=== PATIENT | male | born 1990 | race Caucasian/White ===

== ENCOUNTER 2017-10-10 19:39 | Observation (INO) ==
[2017-10-10] MEDS ORDERED: 0.9 % SODIUM CHLORIDE 1,000 ML IV ONE ×2 (19:46→21:57)
[2017-10-10] MEDS ORDERED: ONDANSETRON 4 MG/2 ML VIAL IV ONE (19:46)
[2017-10-10] MEDS ORDERED: PROMETHAZINE 25 MG/ML VIAL IV ONE (20:44)
[2017-10-10] MEDS ORDERED: HYDROmorphone 2 MG/ML VIAL IV PRN (20:44)
[2017-10-10 20:58] LABS: Basophils # (Auto) 0.1 K/mcL (0.0-0.3); Basophils % (Auto) 0.4 % (0.0-2.0); Eosinophils # (Auto) 0.2 K/mcL (0.0-0.7); Eosinophils % (Auto) 1.4 % (0.0-7.0); Granulocytes % (Auto) 72.8 % (38.0-78.0); Lymphocytes # (Auto) 3.4 K/mcL (1.5-4.8); Lymphocytes % (Auto) 20.2 % (15.5-49.0); Mean Cell Volume 92.9 fL (80.0-100.0); Mean Corpuscular HGB Conc 33.6 g/dL (31.0-36.0); Mean Corpuscular Hemoglobin 31.2 pg (26.0-34.0); Monocytes # (Auto) 0.9 K/mcL (0.1-0.9); Monocytes % (Auto) 5.2 % (1.0-12.0); Platelet Count 221 K/mcL (140-440); RBC 4.84 M/mcL (4.50-5.90); Red Cell Distribution Width 12.5 % (11.5-14.5)
[2017-10-10 21:17] LABS: ALT/SGPT 35 U/l (0-40); Albumin 4.6 gm/dL (3.2-5.2); Albumin/Globulin Ratio 1.7 (1.0-2.3); Alkaline Phosphatase 142 U/L (39-117); Blood Urea Nitrogen 29 mg/dl (6-20)
[2017-10-10 21:27] LABS: Beta Hydroxybutyrate 4.84 mmol/L (< 0.27)
[2017-10-10] MEDS ORDERED: METOCLOPRAMIDE 10 MG/2 ML VIAL IV ONE (21:51)
[2017-10-10] MEDS ORDERED: INSULIN REGULAR, HUMAN 50 UNIT in 0.9 % SODIUM CHLORIDE 99.5 ML IV SCH (22:00)
[2017-10-10] MEDS ORDERED: INSULIN REGULAR, HUMAN 1 UNIT/0.01 ML UNIT IV ONE (22:04)
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
[2017-10-10] MEDS ORDERED: ACETAMINOPHEN 325 MG TABLET PO PRN (22:45)
[2017-10-10] MEDS ORDERED: INSULIN REGULAR, HUMAN 50 UNIT in 0.9 % SODIUM CHLORIDE 100 ML IV SCH (22:45)
[2017-10-10] MEDS ORDERED: ONDANSETRON 4 MG/2 ML VIAL IV PRN (22:45)
[2017-10-10] MEDS ORDERED: PROCHLORPERAZINE 10 MG/2 ML VIAL IV PRN (22:51)
[2017-10-10] MEDS ORDERED: ONDANSETRON 4 MG/2 ML VIAL ONE (22:54)
[2017-10-10 23:00] LABS: Appearance,Urine CLEAR; Bacteria,Urine 0 /hpf (0); Bilirubin,Urine NEG (NEG); Color,Urine STRAW; Glucose,Urine (UA) >=500 mg/dL (NEG); Leukocyte Esterase,Urine NEG /uL (NEG); Mucus,Urine FEW /hpf (0); Protein,Urine NEG (NEG); Specific Gravity,Urine 1.022 (1.000-1.035); Urine Blood NEG mg/dL (<0.03); Urine RBC < 1 /hpf (0-1); Urine Squamous Epithelial Cell < 1 /hpf (0-4); Urine WBC < 1 /hpf (0-4); Urobilinogen,Urine NEG (NEG)
[2017-10-10] MEDS ORDERED: INSULIN REGULAR, HUMAN 1 UNIT/0.01 ML UNIT ONE (23:08)
[2017-10-10] MEDS: 0.9 % SODIUM CHLORIDE 1,000 ML IV SCH (23:30)
[2017-10-11] MEDS: DEXTROSE 5%-1/2NS 1,000 ML IV SCH ×3 (00:25→15:03)
[2017-10-11 01:33] LABS: Hemoglobin A1C 8.2 % HGB (4.0-6.0)
[2017-10-11] MEDS: 0.9 % SODIUM CHLORIDE 10 ML SYRINGE IV SCH ×3 (05:02→22:25)
[2017-10-11 06:23] LABS: Basophils # (Auto) 0 K/mcL (0.0-0.3); Basophils % (Auto) 0 % (0.0-2.0); Eosinophils # (Auto) 0 K/mcL (0.0-0.7); Eosinophils % (Auto) 0 % (0.0-7.0); Granulocytes % (Auto) 88.7 % (38.0-78.0); Lymphocytes % (Auto) 6.3 % (15.5-49.0); Mean Cell Volume 92.9 fL (80.0-100.0); Mean Corpuscular HGB Conc 33.9 g/dL (31.0-36.0); Mean Corpuscular Hemoglobin 31.5 pg (26.0-34.0); Monocytes # (Auto) 0.8 K/mcL (0.1-0.9); Platelet Count 194 K/mcL (140-440); RBC 4.11 M/mcL (4.50-5.90); Red Cell Distribution Width 12.4 % (11.5-14.5)
[2017-10-11] MEDS: 0.9 % SODIUM CHLORIDE 1,000 ML IV SCH ×2 (06:38→17:52)
[2017-10-11 06:44] LABS: ALT/SGPT 28 U/l (0-40); Albumin 3.9 gm/dL (3.2-5.2); Albumin/Globulin Ratio 1.9 (1.0-2.3); Alkaline Phosphatase 92 U/L (39-117); Bilirubin,Direct < 0.2 mg/dL (0.0-0.3); Blood Urea Nitrogen 24 mg/dl (6-20); Gamma Glutamyl Transpeptidase 23 U/L (8-61); Uric Acid 4.7 mg/dL (2.5-8.0)
--- NOTE | 2017-10-11 07:14 | Emergency Department Note ---
General Adult HPI - General Chief complaint: Cold/Flu Symptoms Stated complaint: Emesis, Body Aches Time Seen by Provider: 10/10/17 19:45 - History of Present Illness HPI Narrative: This patient has been type 1 diabetes for 10-12 years and worries that he may be in DKA. He says some diffuse abdominal achiness nausea and dehydration for the last day. No other significant symptoms. - Related Data Home Medications Medication Instructions Recorded Confirmed Insulin Aspart Prot/Insuln Asp 100 unit SQ TIDAC 10/10/17 10/10/17 [Novolog Mix 70-30 Vial] Allergies Allergy/AdvReac Type Severity Reaction Status Date / Time No Known Drug Allergies Allergy Verified 08/31/16 18:52 Review of Systems All systems ED: reviewed and negative except as stated. Past Medical History - Past Medical History Medical history: Reports: DM (Type I) Surgical history ED: Reports: no surgical history - Social History smoking status: Never smoker Alcohol use: Reports: Unknown Drug use: Reports: unknown Physical Exam Limitations: no limitations General appearance: alert Head: atraumatic Eye: Present: normal appearance ENT: mucous membranes dry Neck: Present: normal inspection Chest: Present: normal inspection Respiratory: Present: normal lung sounds bilaterally Cardiovascular: Present: regular rate, normal rhythm, normal heart sounds Abdominal: Present: soft. Absent: distention, tenderness Neurological: Present: alert Psychiatric: Present: normal affect Skin: Present: warm, dry, intact Course Vital Signs Temperature 97.0 F 10/10/17 19:40 Pulse Rate 105 H 10/10/17 19:40 Respiratory Rate 26 H 10/10/17 19:40 Blood Pressure 147/82 10/10/17 19:40 Pulse Oximetry (%) 100 10/10/17 19:40 Temperature 99.9 F H 10/11/17 07:03 Pulse Rate 89 10/11/17 07:03 Respiratory Rate 18 10/11/17 07:03 Blood Pressure 101/61 10/11/17 07:03 Pulse Oximetry (%) 98 10/11/17 07:03 Medical Decision Making - [facility] Narrative Medical decision making narrative: This patient was hydrated and given IV insulin 10 mg an IV drip was started after DKA was diagnosed. Patient will be admitted to the hospital by the hospitalist service. - Lab Data Lab results reviewed: Yes I reviewed the patient's lab results. Result diagrams: 10/11/17 04:00 10/11/17 04:00 Lab Results 10/10/17 10/10/17 10/10/17 Range/Units 19:56 19:56 19:56 WBC 16.9 H (4.5-11.0) K/mcL RBC 4.84 (4.50-5.90) M/mcL Hgb 15.1 (13.5-16.5) g/dL Hct 45.0 (41.0-55.0) % MCV 92.9 (80.0-100.0) fL MCH 31.2 (26.0-34.0) pg MCHC 33.6 (31.0-36.0) g/dL RDW 12.5 (11.5-14.5) % Plt Count 221 (140-440) K/mcL MPV 10.1 (7.4-10.4) fL Gran % 72.8 (38.0-78.0) % Lymph % (Auto) 20.2 (15.5-49.0) % [place] % (Auto) 5.2 (1.0-12.0) % Eos % (Auto) 1.4 (0.0-7.0) % Baso % (Auto) 0.4 (0.0-2.0) % Gran # 12.3 H (1.8-8.0) K/mcL Lymph # (Auto) 3.4 (1.5-4.8) K/mcL [place] # (Auto) 0.9 (0.1-0.9) K/mcL Eos # (Auto) 0.2 (0.0-0.7) K/mcL Baso # (Auto) 0.1 (0.0-0.3) K/mcL Sodium 134 (133-145) mmol/L Potassium 4.5 (3.3-5.1) mmol/L Chloride 91 L (96-108) mmol/L Carbon Dioxide 15 L (22-30) mmol/L Anion Gap 28.0 H (8-16) BUN 29 H (6-20) mg/dl Creatinine 0.9 (0.7-1.2) mg/dl GFR Calculation 116 Glucose 419 H (70-105) mg/dL Hemoglobin A1c 8.2 H (4.0-6.0) % HGB Estim Average Glucose 189 mg/dL Calcium 9.7 (8.6-10.4) mg/dl Total Bilirubin 0.8 (0.0-1.0) mg/dL AST 33 (0-37) U/l ALT 35 (0-40) U/l Alkaline Phosphatase 142 H (39-117) U/L Total Protein 7.3 (5.9-8.4) gm/dL Albumin 4.6 (3.2-5.2) gm/dL Globulin 2.7 (2.2-3.7) gm/dL Albumin/Globulin Ratio 1.7 (1.0-2.3) Beta-Hydroxybutyrate 4.84 H (< 0.27) mmol/L Urine Color Urine Appearance Urine pH (5.0-9.0) Ur Specific [place] (1.000-1.035) Urine Protein (NEG) mg/dL Urine Glucose (UA) (NEG) mg/dL Urine Ketones (NEG) mg/dL Urine Occult Blood (<0.03) mg/dL Urine Nitrate (NEG) Urine Bilirubin (NEG) mg/dL Urine Urobilinogen (NEG) mg/dL Ur Leukocyte Esterase (NEG) /uL Urine RBC (0-1) /hpf Urine WBC (0-4) /hpf Ur Squamous Epith Cells (0-4) /hpf Urine Bacteria (0) /hpf Urine Mucus (0) /hpf Ur Culture Indicated? 10/10/17 Range/Units 22:15 WBC (4.5-11.0) K/mcL RBC (4.50-5.90) M/mcL Hgb (13.5-16.5) g/dL Hct (41.0-55.0) % MCV (80.0-100.0) fL MCH (26.0-34.0) pg MCHC (31.0-36.0) g/dL RDW (11.5-14.5) % Plt Count (140-440) K/mcL MPV (7.4-10.4) fL Gran % (38.0-78.0) % Lymph % (Auto) (15.5-49.0) % [place] % (Auto) (1.0-12.0) % Eos % (Auto) (0.0-7.0) % Baso % (Auto) (0.0-2.0) % Gran # (1.8-8.0) K/mcL Lymph # (Auto) (1.5-4.8) K/mcL [place] # (Auto) (0.1-0.9) K/mcL Eos # (Auto) (0.0-0.7) K/mcL Baso # (Auto) (0.0-0.3) K/mcL Sodium (133-145) mmol/L Potassium (3.3-5.1) mmol/L Chloride (96-108) mmol/L Carbon Dioxide (22-30) mmol/L Anion Gap (8-16) BUN (6-20) mg/dl Creatinine (0.7-1.2) mg/dl GFR Calculation Glucose (70-105) mg/dL Hemoglobin A1c (4.0-6.0) % HGB Estim Average Glucose mg/dL Calcium (8.6-10.4) mg/dl Total Bilirubin (0.0-1.0) mg/dL AST (0-37) U/l ALT (0-40) U/l Alkaline Phosphatase (39-117) U/L Total Protein (5.9-8.4) gm/dL Albumin (3.2-5.2) gm/dL Globulin (2.2-3.7) gm/dL Albumin/Globulin Ratio (1.0-2.3) Beta-Hydroxybutyrate (< 0.27) mmol/L Urine Color Straw Urine Appearance Clear Urine pH 5.0 (5.0-9.0) Ur Specific [place] 1.022 (1.000-1.035) Urine Protein Neg (NEG) mg/dL Urine Glucose (UA) >=500 A (NEG) mg/dL Urine Ketones 80 A (NEG) mg/dL Urine Occult Blood Neg (<0.03) mg/dL Urine Nitrate Neg (NEG) Urine Bilirubin Neg (NEG) mg/dL Urine Urobilinogen Neg (NEG) mg/dL Ur Leukocyte Esterase Neg (NEG) /uL Urine RBC < 1 (0-1) /hpf Urine WBC < 1 (0-4) /hpf Ur Squamous Epith Cells < 1 (0-4) /hpf Urine Bacteria 0 (0) /hpf Urine Mucus Few (0) /hpf Ur Culture Indicated? No - Radiology Data Radiology results reviewed: Yes I reviewed the patient's radiology results. Disposition Pt seen by [facility]ATE/PA only: No Clinical Impression: DKA, type 1 Disposition: Xfer As Outpt/Obs ([facility]) Condition: Good
--- NOTE | 2017-10-11 08:20 | XRay Report ---
HISTORY: Shortness of breath, body aches and emesis FINDINGS: The lungs are clear and normally expanded. The heart size, pulmonary vasculature, mediastinum, lisandro and pleura are normal. IMPRESSION: Normal chest Interpreted and Authenticated by: Blanco Sena 10/11/17
--- NOTE | 2017-10-11 11:00 | Discharge Summary ---
Medical - DS: Prov Patient information: Note initiated : 10/11/17 at 10:57 am Patient: Deandre Toledo a 27 y/o M admitted on 10/10/17 for Emesis, Body Aches. Date of admission: 10/10/17 22:39 Discharge date: 10/11/17 Primary care physician: Jc Lu Admitting clinician: Jessi Benavides Consults: 10/10/17 22:34 Consult to Physician [CONS] Stat Comment: Consulting Provider: Jessi Benavides Reason For Exam: Physician to Consult Discharging clinician: Jessi Benavides Medical - DS: Meds - Discharge Medications Active and Home Medications: Home Medications Insulin Aspart Prot/Insuln Asp [Novolog Mix 70-30 Vial] 100 unit SQ TIDAC [History Confirmed 10/10/17 Last Taken Unknown] Medical - DS: Hosp Hospital course: Mr. Toledo is a 27 year old M with a history of type 1 diabetes mellitus, diagnosed in 2003 presents to the emergency department complaining of ongoing nausea and vomiting. Also some body aches, occasional dyspnea. Onset was at about 10 AM this morning, he had nausea and vomiting, his glucoses were running high. This continued through the day, in spite of using his insulin pump, his glucoses continue to increase. This evening due to increasing CABG as well as persistent symptoms, he presents to the emergency department. Patient been well up until today. Denies any fever, he's feeling a bit chilled in the ED. Occasionally having dyspnea. No cough or sputum production. No chest tightness/squeezing/pressure. He is having emesis, has been retching forcefully, is now having some hematemesis. Initially there was no hematemesis. Is no history of ulcer or GI bleeding, no blood in his stool. Onset: 10 AM. Duration: 11 hours of presentation. Location: Systemic. Severity: Severe. Associated symptoms: Hematemesis, chills, dyspnea. Patient denies headache, sinus congestion/facial fullness, sore throat, cough or sputum production, abdominal pain, dysuria. No fever. No history of coronary disease. He has had DKA in the past, most recently about 3 years ago. In the emergency department, he is evaluated, noted to have glucose of 439, acidotic with increased anion gap and positive ketones. He's been admitted for treatment of diabetic ketoacidosis. Overnight, the patient received insulin infusion, hydration. By the following morning his anion gap had closed, he is feeling markedly better. He did not have any significant electrolyte abnormalities. Nausea and vomiting have resolved. Patient had noted that his glucoses had started to increase while he is at work, did not have his meter, had started to increase insulin via his pump but started to feel poorly. Suspect DKA was secondary to not able to compensate for progressive hyperglycemia. Patient had mild hematemesis consistent with Aviva-Whiteside tear. He had no further emesis or hematemesis by discharge. With hydration hemoglobin changed from 15-13, as might be expected, no evidence of further GI blood loss. Patient 's white count was 16,000 presentation, no evidence of infection was noted. The following morning it remained at 16,000. Infection as a cause of DKA is not suspected, this may represent a prolonged stress response. Patient's insulin infusion was titrated off, pump was resumed. He was monitored with stable glucose and was discharged to home. Discharge diagnosis: Type 1 diabetes mellitus with diabetic ketoacidosis - Time Spent with Patient Total time spent providing and/or coordinating discharge services: Medical - DS: Exam - Constitutional Vitals: Vital Signs Temp Pulse Pulse Resp BP BP Pulse Ox 10/11/17 07:05 87 18 98 10/11/17 07:03 99.9 F H 89 18 101/61 98 10/11/17 04:01 92 H 105/64 97 10/11/17 03:01 85 109/60 97 10/11/17 02:01 82 116/68 98 10/11/17 01:01 96 H 107/64 97 10/11/17 00:01 103 H 116/71 96 10/10/17 22:57 102 H 132/70 97 10/10/17 22:49 122/79 10/10/17 22:40 97.0 F 103 H 15 122/79 97 10/10/17 22:39 99.1 F H 102 H 22 132/70 97 10/10/17 22:37 103 H 15 97 10/10/17 22:31 105 H 22 122/79 98 10/10/17 22:16 101 H 15 126/67 98 10/10/17 21:46 101 H 30 H 115/55 97 10/10/17 21:31 96 H 19 110/50 95 10/10/17 21:17 96 H 14 94/44 96 10/10/17 21:02 99 H 14 112/44 94 10/10/17 20:38 100 H 42 H 112/47 99 10/10/17 20:01 95 H 36 H 112/62 100 10/10/17 19:56 97 H 23 H 100 10/10/17 19:50 104 H 22 129/77 100 10/10/17 19:40 97.0 F 105 H 26 H 147/82 100 Intake and Output 10/10/17 10/11/17 10/11/17 21:59 05:59 13:59 Intake Total 1000 / 1000 920 / 920 1368 / 1368 Output Total 0 / 0 1150 / 1150 Balance 1000 / 1000 920 / 920 218 / 218 Intake: IV 1000 / 1000 920 / 920 1368 / 1368 Sodium Chloride 0.9% 1,000 ml @ 1000 / 1000 876 / 876 125 mls/hr IV .Q8H JAZZ Rx#: [id number] Dextrose 5%-1/2Ns IV Solution 1 1281 / 1281 ,000 ml @ 125 mls/hr IV .Q8H JAZZ Rx#:[id number] HumuLIN R 50 UNIT In Sodium 4 / 4 39 / 39 Chloride 0.9% 100 ml @ 0.1 UNIT /KG/HR 15.04 mls/hr IV DUR JAZZ Rx#:[id number] Output: Void Amount 0 / 0 1150 / 1150 Other: # Voids 0 Weight 165 lb 181 lb 14.4 oz Additional comments: General: No acute distress Chest: Clear, unlabored Cardiovascular: Regular, no murmur Abdomen: Soft, nontender, no epigastric tenderness Neuro: Alert, oriented to person, place, situation, nonfocal Medical - DS: Data Labs on day of discharge: Labs from last 24 hours 10/11/17 10/11/17 10/10/17 04:00 04:00 22:55 WBC 16.6 H RBC 4.11 L Hgb 13.0 L Hct 38.2 L MCV 92.9 MCH 31.5 MCHC 33.9 RDW 12.4 Plt Count 194 MPV 9.2 Gran % 88.7 H Lymph % (Auto) 6.3 L [place] % (Auto) 5.0 Eos % (Auto) 0 Baso % (Auto) 0 Gran # 14.7 H Lymph # (Auto) 1.0 L [place] # (Auto) 0.8 Eos # (Auto) 0 Baso # (Auto) 0 Sodium 139 Potassium 4.1 Chloride 103 Carbon Dioxide 22 Anion Gap 14.0 BUN 24 H Creatinine 0.8 GFR Calculation 122 Glucose 198 H Hemoglobin A1c Estim Average Glucose Uric Acid 4.7 Calcium 8.7 Phosphorus 2.7 Magnesium 1.9 Total Bilirubin 0.4 Direct Bilirubin < 0.2 GGT 23 AST 21 ALT 28 Alkaline Phosphatase 92 Lactate Dehydrogenase 156 Total Protein 6.0 Albumin 3.9 Globulin 2.1 L Albumin/Globulin Ratio 1.9 Triglycerides 37 Beta-Hydroxybutyrate 5.09 H Urine Color Urine Appearance Urine pH Ur Specific [place] Urine Protein Urine Glucose (UA) Urine Ketones Urine Occult Blood Urine Nitrate Urine Bilirubin Urine Urobilinogen Ur Leukocyte Esterase Urine RBC Urine WBC Ur Squamous Epith Cells Urine Bacteria Urine Mucus Ur Culture Indicated? 10/10/17 10/10/17 10/10/17 22:15 19:56 19:56 WBC RBC Hgb Hct MCV MCH MCHC RDW Plt Count MPV Gran % Lymph % (Auto) [place] % (Auto) Eos % (Auto) Baso % (Auto) Gran # Lymph # (Auto) [place] # (Auto) Eos # (Auto) Baso # (Auto) Sodium 134 Potassium 4.5 Chloride 91 L Carbon Dioxide 15 L Anion Gap 28.0 H BUN 29 H Creatinine 0.9 GFR Calculation 116 Glucose 419 H Hemoglobin A1c 8.2 H Estim Average Glucose 189 Uric Acid Calcium 9.7 Phosphorus Magnesium Total Bilirubin 0.8 Direct Bilirubin GGT AST 33 ALT 35 Alkaline Phosphatase 142 H Lactate Dehydrogenase Total Protein 7.3 Albumin 4.6 Globulin 2.7 Albumin/Globulin Ratio 1.7 Triglycerides Beta-Hydroxybutyrate 4.84 H Urine Color Straw Urine Appearance Clear Urine pH 5.0 Ur Specific [place] 1.022 Urine Protein Neg Urine Glucose (UA) >=500 A Urine Ketones 80 A Urine Occult Blood Neg Urine Nitrate Neg Urine Bilirubin Neg Urine Urobilinogen Neg Ur Leukocyte Esterase Neg Urine RBC < 1 Urine WBC < 1 Ur Squamous Epith Cells < 1 Urine Bacteria 0 Urine Mucus Few Ur Culture Indicated? No 10/10/17 19:56 WBC 16.9 H RBC 4.84 Hgb 15.1 Hct 45.0 MCV 92.9 MCH 31.2 MCHC 33.6 RDW 12.5 Plt Count 221 MPV 10.1 Gran % 72.8 Lymph % (Auto) 20.2 [place] % (Auto) 5.2 Eos % (Auto) 1.4 Baso % (Auto) 0.4 Gran # 12.3 H Lymph # (Auto) 3.4 [place] # (Auto) 0.9 Eos # (Auto) 0.2 Baso # (Auto) 0.1 Sodium Potassium Chloride Carbon Dioxide Anion Gap BUN Creatinine GFR Calculation Glucose Hemoglobin A1c Estim Average Glucose Uric Acid Calcium Phosphorus Magnesium Total Bilirubin Direct Bilirubin GGT AST ALT Alkaline Phosphatase Lactate Dehydrogenase Total Protein Albumin Globulin Albumin/Globulin Ratio Triglycerides Beta-Hydroxybutyrate Urine Color Urine Appearance Urine pH Ur Specific [place] Urine Protein Urine Glucose (UA) Urine Ketones Urine Occult Blood Urine Nitrate Urine Bilirubin Urine Urobilinogen Ur Leukocyte Esterase Urine RBC Urine WBC Ur Squamous Epith Cells Urine Bacteria Urine Mucus Ur Culture Indicated? - Imaging and Cardiology Chest x-ray Additional comments: IMPRESSION: Normal chest Medical - DS: A/P - Patient/Caregiver Discharge Instructions Activity: increase activity as tolerated Diet: Consistent Carbohydrate - Problem Maintenance (1) DKA (diabetic ketoacidoses) Status: Resolved Qualifiers: Diabetes mellitus type: type 1 Diabetes mellitus complication detail: without coma Qualified Code(s): E10.10 - Type 1 diabetes mellitus with ketoacidosis without coma (2) Hematemesis with nausea Status: Resolved - Follow up Plan Follow up with: Jc Lu PA-C [Primary Care Provider] - 10/18/17 3:30 pm Disposition: Home, Self-Care Prognosis: Good Rehab Potential: Good Overall status at discharge: patient is back to baseline Medical - DS: Qual - VTE Deep Vein Thrombosis/Pulmonary Embolism Present on Admission: No
[2017-10-11] MEDS ORDERED: INSULIN LISPRO 1 UNIT/0.01 ML UNIT SQ ONE (12:43)
[2017-10-11] MEDS ORDERED: 0.9 % SODIUM CHLORIDE 1,000 ML IV ONE ×2 (14:45→14:46)
[2017-10-11] MEDS: INSULIN LISPRO 1 UNIT/0.01 ML UNIT SQ SCH ×4 (16:01→22:23)
[2017-10-11 19:38] LABS: Blood Urea Nitrogen 15 mg/dl (6-20)
[2017-10-11] MEDS ORDERED: cefTRIAXone 1 GM VIAL IV ONE (20:04)
[2017-10-11] MEDS ORDERED: POTASSIUM CHLORIDE 40 MEQ in DEXTROSE 5% IN WATER 500 ML IV ONE (21:43)
[2017-10-11] MEDS ORDERED: POTASSIUM CHLORIDE 20 MEQ/10 ML VIAL IV ONE (22:21)
[2017-10-12] MEDS: INSULIN LISPRO 1 UNIT/0.01 ML UNIT SQ SCH ×7 (00:06→12:15)
[2017-10-12] MEDS: 0.9 % SODIUM CHLORIDE 1,000 ML IV SCH ×2 (01:49→08:26)
[2017-10-12] MEDS: 0.9 % SODIUM CHLORIDE 10 ML SYRINGE IV SCH (04:26)
[2017-10-12 05:18] LABS: Basophils # (Auto) 0 K/mcL (0.0-0.3); Basophils % (Auto) 0.3 % (0.0-2.0); Eosinophils # (Auto) 0.2 K/mcL (0.0-0.7); Eosinophils % (Auto) 1.6 % (0.0-7.0); Granulocytes % (Auto) 67.5 % (38.0-78.0); Lymphocytes # (Auto) 2.6 K/mcL (1.5-4.8); Lymphocytes % (Auto) 25.9 % (15.5-49.0); Mean Cell Volume 93.2 fL (80.0-100.0); Mean Corpuscular HGB Conc 33.9 g/dL (31.0-36.0); Mean Corpuscular Hemoglobin 31.6 pg (26.0-34.0); Monocytes # (Auto) 0.5 K/mcL (0.1-0.9); Monocytes % (Auto) 4.7 % (1.0-12.0); Platelet Count 162 K/mcL (140-440); RBC 3.84 M/mcL (4.50-5.90); Red Cell Distribution Width 12.6 % (11.5-14.5)
[2017-10-12 05:39] LABS: ALT/SGPT 24 U/l (0-40); Albumin 3.3 gm/dL (3.2-5.2); Albumin/Globulin Ratio 1.7 (1.0-2.3); Alkaline Phosphatase 67 U/L (39-117); Bilirubin,Direct < 0.2 mg/dL (0.0-0.3); Blood Urea Nitrogen 11 mg/dl (6-20); Gamma Glutamyl Transpeptidase 19 U/L (8-61)
--- NOTE | 2017-10-12 12:54 | Internal Med Progress Note ---
Medical - PN: Subj Patient information: Note initiated : 10/12/17 at 12:52 pm Service Date, if different from initiated Date: [] Patient: Deandre Toledo 27 y/o M admitted on 10/10/17 for Emesis, Body Aches/ Diabetic Ketoacidosis. Chief Complaint: [] Interval history: Patient was ready for discharge yesterday, but stayed ovenight as glucose was uncontrolled. His hydroxybutyrate was elevated, IV fluids given, with improvement in same. this AM hydroxybutyrate is 0.4, not not normal, but much better he still has elevated procalcitonin, but no e/o infection. he seems to be on a very low dose of pre meal insulin. he uses an insulin pump and I am not sure if he is on adequate coverage for same. advised to talk to his pcp regarding his insulin coverage pre meals. I feel he will benefit from a dose of insulin before meals. Encouraged to increase po intake he will see his PCP in 1 day, appointment set for tomorrow. Pertinent ROS: Denies headache, dizziness Denies chest pain, palpitations Denies cough or shortness of breath Denies abdominal pain, nausea or vomiting. - Constitutional Vitals: Vital Signs Temp Pulse Resp BP Pulse Ox 98.9 F 66 20 132/82 99 10/12/17 08:15 10/12/17 08:00 10/11/17 20:13 10/12/17 08:15 10/12/17 04:07 Period Temp Pulse Resp BP Sys/Qu[place] Pulse Ox Last 24 Hr 98.0 F-99.3 F 63-80 20-20 104-132/64-84 99-100 Intake and Output 10/11/17 10/12/17 10/12/17 21:59 05:59 13:59 Intake Total 1999 3250 / 3250 993 / 993 Output Total 850 / 850 1000 / 1000 Balance 1150 / 1150 2250 / 2250 993 / 993 Weight 186 lb 4.8 oz Intake & Output: Intake & Output 10/11/17 10/12/17 10/12/17 21:59 05:59 13:59 Intake Total 1999 3250 / 3250 993 / 993 Output Total 850 / 850 1000 / 1000 Balance 1150 / 1150 2250 / 2250 993 / 993 Weight 186 lb 4.8 oz Intake: IV 1999 / 999 993 / 993 Sodium Chloride 0.9% 1,000 ml @ 999 / 999 1000 / 1000 993 / 993 150 mls/hr IV .Q6H40M [facility] Rx#: [id number] Oral 2250 / 2250 Output: Void Amount 850 / 850 1000 / 1000 Exam: Constitutional; Afebrile, cooperative, alert, not in distress. Eyes- No icterus, , No periorbital swelling Ears- Ext ear normal, hearing normal to conversation. Neck- Midline trachea, supple Respiratory system: Air Entry equal on both sides, No crackles or wheezing, no rhonchi. CVS- Rate rhythm regular, S1,S2 heard, no gallop, no rub. Abdomen- Soft nontender abdomen, no organomegaly, no tenderness, no guarding or rigidity, [employer]- AOOx3, moving all extremities, no gross focal deficit noted. Medical - PN: Obj Da - Labs CBC & Chem 7: 10/12/17 04:00 10/12/17 04:00 Labs: Abnormal Lab Results 10/12/17 10/12/17 10/12/17 04:00 04:00 04:00 WBC RBC 3.84 L Hgb 12.1 L Hct 35.8 L Gran % Lymph % (Auto) Gran # Lymph # (Auto) Chloride Carbon Dioxide Anion Gap BUN Creatinine 0.6 L Glucose 171 H Hemoglobin A1c Calcium 7.9 L Phosphorus 1.7 L Alkaline Phosphatase Total Protein 5.2 L Globulin 1.9 L Beta-Hydroxybutyrate 0.41 H Urine Glucose (UA) Urine Ketones 10/11/17 10/11/17 10/11/17 18:04 12:33 12:33 WBC RBC Hgb Hct Gran % Lymph % (Auto) Gran # Lymph # (Auto) Chloride Carbon Dioxide 20 L Anion Gap 17.0 H BUN Creatinine Glucose 188 H Hemoglobin A1c Calcium 7.7 L Phosphorus Alkaline Phosphatase Total Protein Globulin Beta-Hydroxybutyrate 1.00 H 2.48 H Urine Glucose (UA) Urine Ketones 10/11/17 10/11/17 10/10/17 04:00 04:00 22:55 WBC 16.6 H RBC 4.11 L Hgb 13.0 L Hct 38.2 L Gran % 88.7 H Lymph % (Auto) 6.3 L Gran # 14.7 H Lymph # (Auto) 1.0 L Chloride Carbon Dioxide Anion Gap BUN 24 H Creatinine Glucose 198 H Hemoglobin A1c Calcium Phosphorus Alkaline Phosphatase Total Protein Globulin 2.1 L Beta-Hydroxybutyrate 5.09 H Urine Glucose (UA) Urine Ketones 10/10/17 10/10/17 10/10/17 22:15 19:56 19:56 WBC RBC Hgb Hct Gran % Lymph % (Auto) Gran # Lymph # (Auto) Chloride 91 L Carbon Dioxide 15 L Anion Gap 28.0 H BUN 29 H Creatinine Glucose 419 H Hemoglobin A1c 8.2 H Calcium Phosphorus Alkaline Phosphatase 142 H Total Protein Globulin Beta-Hydroxybutyrate 4.84 H Urine Glucose (UA) >=500 A Urine Ketones 80 A 10/10/17 19:56 WBC 16.9 H RBC Hgb Hct Gran % Lymph % (Auto) Gran # 12.3 H Lymph # (Auto) Chloride Carbon Dioxide Anion Gap BUN Creatinine Glucose Hemoglobin A1c Calcium Phosphorus Alkaline Phosphatase Total Protein Globulin Beta-Hydroxybutyrate Urine Glucose (UA) Urine Ketones Meds: Medications Acetaminophen (Tylenol) 650 mg PO Q6HP PRN PRN Reason: PAIN/FEVER > 101 Diagnostic Test (Pha) (Accu-Chek) 1 each FS Q2 JAZZ Last Admin: 10/12/17 12:14 Dose: 1 each Sodium Chloride (Sodium Chloride 0.9%) 1,000 mls @ 150 mls/hr IV .Q6H40M JAZZ Last Admin: 10/12/17 08:26 Dose: 150 mls/hr Insulin Human Lispro (Humalog) 0 unit SQ Q2 JAZZ; Protocol Last Admin: 10/12/17 12:15 Dose: 3 unit Ondansetron HCl (Zofran) 4 mg IV Q4HP PRN PRN Reason: Nausea And Vomiting Prochlorperazine Edisylate (Compazine) 10 mg IV Q4HP PRN PRN Reason: Nausea And Vomiting Sodium Chloride (Saline Flush) 10 ml IV Q8 JAZZ Last Admin: 10/12/17 04:26 Dose: 10 ml Medical - PN: A/P - Time Spent With Patient Total time spent is greater than 50% in coordination of care (as documented) at patient's floor/unit and/or counseling patient: - Narrative A/P Narrative: A/P DKA- resolved, toleratin po deit well DM type 1- on insulin pump, needs to be adjusted, pt to see his pcp tomorrow. elevated procalcitonin -trending down, no e/o infection clinically. likely from dka? stress from same.? stable for d/c Medical - PN: Qual - VTE Deep Vein Thrombosis/Pulmonary Embolism Present on Admission: No
== END 2017-10-12 13:47 | disposition home or self-care (01) ==
LOC: ED 19:39 → ICU 22:29 → INTOOBSV 22:39 → ICU 22:39
PROVIDERS: ADMIT Internal Medicine; ATTEND Internal Medicine